=== PATIENT | female | born 1955 | race Caucasian/White ===

== ENCOUNTER 2016-08-18 17:01 | Emergency (ER) | payer OTHER ==
[~2016-08-18] VITALS: Ht 163.8 cm; Wt 94.6 kg
[2016-08-18 17:27] VITALS: BP 165/97; PULSE 59; RESP 16; TEMP 98.2; O2SAT 96
[2016-08-18] MEDS ORDERED: VITA10007 PO (18:58)
[2016-08-18] MEDS ORDERED: ATEN1TAB75 PO (18:58)
[2016-08-18] MEDS ORDERED: TRIA37.53 PO (18:58)
[2016-08-18] MEDS ORDERED: VITA10004 PO (18:58)
[2016-08-18] MEDS ORDERED: VITA100036 PO (18:58)
--- NOTE | 2016-08-18 19:30 | PD ---
HPI Chief Complaint: Musculoskeletal Complaint Time Seen by Provider: 19:00 Travel History International Travel<30 days: No Contact w/Intl Traveler<30days: No Traveled to known affect area: No History of Present Illness HPI This 61-year-old female is complaining of pain in her left arm. She's been having this pain off and on since April. Did is worse at times and gets better. He gets worse with movement and certain movements seem to make it worse. She had some numbness on the outside of her thumb intermittently. She called the nurse hotline for her insurance company and was told she should be evaluated for possible heart attack. She has a history of hypertension. She does not have diabetes she stopped smoking in 1988. There is no family history of heart disease. She does not get short of breath. PFSH Past Medical History Cardiovascular Problems: Yes (htn on meds) Hypertension: Yes Immunizations Current: Yes (SHINGLES VACCINE 2015) Tetanus Vaccination: Unknown ?: Not Menopausal: Yes Past Surgical History Thoracic Surgery: Yes (BREAST AUGMENTATION) Other Surgery: Yes (TRACHEOSTOMY AGE 4) Social History Alcohol Use: Yes (5X WEEKLY) Tobacco Use: No (FORMER) Substance Use: No Allergies-Medications (Allergen,Severity, Reaction): Coded Allergies: No Known Allergies (Unverified , 08/18/16) Reported Meds & Prescriptions Reported Meds & Active Scripts Active Reported Vitamin D3 (Cholecalciferol) 1,000 Unit Cap 1,000 Units PO DAILY Vitamin B12 Tr (Cyanocobalamin) 1,000 Mcg Tab 1,000 Mcg PO DAILY Vitamin C (Ascorbic Acid) 1,000 Mg Tab 1,000 Mg PO DAILY Triamterene-Hydrochlorothiazide 37.5-25 Mg Cap 1 Cap PO DAILY Tenormin (Atenolol) 100 Mg Tab 100 Mg PO DAILY Review of Systems General / Constitutional: No: Fever, Chills Eyes: No: Diploplia, Blurred Vision HENT: No: Headaches, Vertigo Cardiovascular: No: Chest Pain or Discomfort, Palpitations Respiratory: No: Cough, Shortness of Breath Gastrointestinal: No: Nausea, Vomiting Genitourinary: No: Urgency, Frequency Musculoskeletal: Positive: Myalgias Skin: No Rash, No Itching Neurologic: No: Weakness, Dizziness Hematologic/Lymphatic: No: Easy Bruising Physical Exam Narrative GENERAL: Well-developed female SKIN: Warm and dry. HEAD: Atraumatic. Normocephalic. EYES: Pupils equal and round. No scleral icterus. No injection or drainage. ENT: No nasal bleeding or discharge. Mucous membranes pink and moist. NECK: Trachea midline. No JVD. CARDIOVASCULAR: Regular rate and rhythm. No murmur appreciated. RESPIRATORY: No accessory muscle use. Clear to auscultation. Breath sounds equal bilaterally. GASTROINTESTINAL: Abdomen soft, non-tender, nondistended. Hepatic and splenic margins not palpable. MUSCULOSKELETAL: No obvious deformities. No clubbing. No cyanosis. No edema. There is some tenderness in the lateral aspect of the humerus. She has good strength in abduction of the shoulders. Gross sensation of the arm is intact. NEUROLOGICAL: Awake and alert. No obvious cranial nerve deficits. Motor grossly within normal limits. Normal speech. PSYCHIATRIC: Appropriate mood and affect; insight and judgment normal. Data Data Last Documented VS Vital Signs Date Time Temp Pulse Resp B/P Pulse Ox O2 Delivery O2 Flow Rate FiO2 08/18/16 17:27 98.2 59 16 165/97 96 Orders Humerus (Min 2vws) (08/18/16 19:08) [facility] Medical Decision Making Medical Screen Exam Complete: Yes Emergency Medical Condition: Yes Medical Record Reviewed: Yes Differential Diagnosis Differential includes neuralgia, neuritis, musculoskeletal pain Narrative Course EKG shows a normal sinus rhythm. Clinically this is not suspicious for coronary artery disease and is reproducible with movement. There is no discernible swelling and no masses associated with the pain. She may be having some neuritis from her flu shot. Diagnosis Primary Impression: Neuritis Disposition: DISCHARGE HOME Condition: Stable Manpreet Miles MD Aug 18, 2016 19:30
--- NOTE | 2016-08-18 19:55 | RADHPO ---
EXAM DATE/TIME: 08/18/2016 19:16 [facility] COMPARISON: No previous studies available for comparison. INDICATIONS : Left humerus pain for four months. MEDICAL HISTORY : None. SURGICAL HISTORY : None. ENCOUNTER: Initial ACUITY: 4 - 6 months PAIN SCORE: 2/10 LOCATION: mid shaft of humerus. FINDINGS: Two view examination of the left humerus demonstrates no evidence of fracture or dislocation. Bony m ineralization is normal. The soft tissue structures are intact. CONCLUSION: No acute disease. Lai Sosa MD on August 18, 2016 at 19:53 Board Certified Radiologist. This report was verified electronically.
[2016-08-18 20:30] VITALS: BP 145/96
--- NOTE | 2016-08-25 13:00 | EKG ---
Date Performed: 08/18/2016 Time Performed: 17:31:28 PTAGE: 61 years EKG: Sinus bradycardia Normal ECG except for rate NO PREVIOUS TRACING DOCTOR: Montana Blair Interpretating Date/Time 08/25/2016 13:00:23
== END 2016-08-18 20:52 | disposition home or self-care (01) ==
LOC: PHED 17:01 → PHEFT 20:52
DX: M79.2 Neuralgia and neuritis, unspecified (principal)
CPT/HCPCS: 73060; 93005